=== PATIENT | female | born 1990 | race Caucasian/White ===

== ENCOUNTER 2016-09-04 08:41 | Emergency (ER) | payer OTHER ==
[~2016-09-04] VITALS: Ht 175.3 cm; Wt 109.1 kg
[~2016-09-04 08:41] MED LIST: GLUCOPHAGE500 MG/TAB PO; LEXAPRO 10MG10 MG PO; MOTRIN 800800 MG/TAB PO; NO HOME MEDICATIONS; PERCOCET 5/321 UDTAB PO; PRENATAL 191 TAB PO; PRENATAL VITAMI1 TA5 PO; PROCARDIA XL 3030 MG PO; REVIEWED; ZANTAC150 MG PO
[2016-09-04 08:48] VITALS: TEMP 98.3
[2016-09-04 09:51] VITALS: PULSE 72
== END 2016-09-04 10:07 | disposition home or self-care (01) ==
LOC: COL.ER 08:41
DX: S01.81XA Laceration without foreign body of other part of head, initial encounter (principal); S06.0X0A Concussion without loss of consciousness, initial encounter; V47.5XXA Car driver injured in collision with fixed or stationary object in traffic accident, initial encounter

== ENCOUNTER 2017-06-18 13:00 | Outpatient (RCR) | payer OTHER | END 2017-06-21 10:31 | LOC: MKS.ESL.PT 13:00 | DX: R32 Unspecified urinary incontinence (principal) ==

== ENCOUNTER 2021-04-05 14:26 | Emergency (ER) | payer BC ==
[~2021-04-05] VITALS: Ht 175.3 cm; Wt 118.2 kg
[~2021-04-05 14:26] MED LIST changes: +PERCOCET 325 MG1 TA2 PO; +WELLBUTRIN XL150 MG PO; +ZANTAC 150MG T150 MG PO
[2021-04-05 14:35] VITALS: TEMP 97.1
[2021-04-05 15:34] LABS: BASO # 0.1 (0.0-0.2); BASO % 0.6 % (0.0-2.0); EOS # 0.4 (0.0-0.7); EOS % 3.6 % (0-4.0); GRAN # 7.7 (1.4-6.5); GRAN % 71.2 % (42.2-75.2); HEMATOCRIT 41.2 % (37.0-47.0); LYMPH # 1.8 (1.2-3.4); MEAN CELL VOLUME 88 fl (80.0-100.0); MEAN CORPUSCULAR HEMOGLOBIN 28 pg (27.0-31.0); MEAN CORPUSCULAR HGB CONC 32 g/dl (33.0-37.0); MEAN PLATELET VOLUME 10.5 fl (7.4-10.4); MONO # 0.8 (0.1-0.6); MONO % 7.2 % (1.7-9.3); PLATELET COUNT 393 K/mm3 (130-400); RED BLOOD COUNT 4.68 M/mm3 (4.10-5.30); REDCELL DISTRIBUTION WIDTH-CV 11.9 % (11.5-14.5)
[2021-04-05 15:41] LABS: CALCIUM 9.1 mg/dL (8.4-10.2); CREATININE, serum 0.66 (0.52-1.25); POTASSIUM 4.3 mmol/L (3.4-5.0)
[2021-04-05 16:10] VITALS: BP 146/95; PULSE 75
== END 2021-04-05 16:23 | disposition home or self-care (01) ==
LOC: COL.ER 14:26
PROVIDERS: Emergency Medicine
DX: J95.830 Postprocedural hemorrhage of a respiratory system organ or structure following a respiratory system procedure (principal); I10 Essential (primary) hypertension; Z90.89 Acquired absence of other organs
CPT/HCPCS: J7030

== ENCOUNTER → 2022-01-16 | Outpatient (CLI) | payer BC | LOC: COL.RAD 10:56 | DX: N92.0 Excessive and frequent menstruation with regular cycle (principal) ==